=== PATIENT | male | born 1940 | race African-American/Black ===

== ENCOUNTER → 2016-12-06 | Outpatient (CLI) | payer MEDICARE, OTHER ==
--- NOTE | 2016-12-06 14:53 | RAD ---
DATE: 12/06/2016 EXAM: DIGITAL DIAGNOSTIC BILATERAL, BREAST RIGHT HISTORY: Right breast lump. History of finasteride use for 10 years. COMPARISON: None available. This study was interpreted with the benefit of Computerized Aided Detection (CAD). The breast parenchyma is primarily fatty replaced. Breast parenchyma level density A. FINDINGS: Bilateral CC and MLO views of the breasts were performed. Bilateral true lateral views were performed. Targeted ultrasound of the right breast was performed. Right breast: There is flame-shaped density in the retroareolar region in the region of palpable abnormality. 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 No suspicious medical calcifications or areas of architectural distortion. Targeted ultrasound of the right breast was performed which demonstrates a hypoechoic irregular mass. Given new and reported increase in size of this palpable abnormality, patient was provided the options of six-month follow-up versus ultrasound-guided breast biopsy. Patient decided to have ultrasound-guided core needle biopsy of the lesion after discussion of risks and benefits. Left breast: In the upper left breast along the posterior nipple line there are rounded calcifications which are linear on CC view with morphology of secretory calcifications. Findings are probably benign and a follow-up in 6 months is recommended. No suspicious mass or architectural distortion. IMPRESSION: 1. Right breast: Suspicious findings. Recommend ultrasound-guided core needle biopsy of retroareolar mass. 2. Left breast: Probably benign findings. Recommend six-month follow-up for calcifications. BI-RADS CATEGORY: 4 SUSPICIOUS ABNORMALITY- BIOPSY SHOULD BE CONSIDERED RECOMMENDED FOLLOW-UP: BIO BIOPSY RECOMMENDED PQRS compliance statement: Mammography is a sensitive method for finding small breast cancers, but it does not detect them all and is not a substitute for careful clinical examination. A negative mammogram does not negate a clinically suspicious finding and should not result in delay in biopsying a clinically suspicious abnormality. "Our facility is accredited by the [employer] Mammography [employer]."
== END | disposition home or self-care (01) ==
LOC: MAMMO 13:04
PROVIDERS: ATTEND Physician Assistant Medical
DX: N63 Unspecified lump in breast (principal)
CPT/HCPCS: 76641; G0204; 77066

== ENCOUNTER → 2016-12-16 | Outpatient (CLI) | payer OTHER ==
[~2016-12-16] VITALS: Ht 170.2 cm; Wt 59.9 kg
[~2016-12-16] MED LIST: CALC500T54 PO; CHOL10003 PO; FISH1CAP PO; MAGN400C PO; METF500T4 PO; MULT1TAB52 PO; VITA1CAP PO; ZINC50TA2 PO
--- NOTE | 2016-12-16 10:47 | RAD ---
Exam performed: Ultrasound-guided right breast biopsy. History: Palpable lump in the right breast, abnormality seen on ultrasound. Date of service: 12/16/16. Comparison made to a diagnostic right mammogram and ultrasound from 12/06/16. Discussion: Preliminary cavalry scout film demonstrates irregular hypoechoic superficial abnormality in the retroareolar right breast. The part was prepped and draped in the usual sterile fashion. 10 cc of 1% lidocaine was infiltrated into the skin and deep tissues. Thereafter a 14-gauge Bard biopsy needle was advanced from the premarked site using a 13-gauge introducer needle. 3 core specimens were taken. A biopsy clip was applied. Postprocedure scanning demonstrated no evidence of hematoma formation. The patient tolerated the procedure well and no immediate complications were encountered. Impression: 1. Technically successful ultrasound-guided right breast biopsy with placement of a biopsy clip. Pathology is pending End impression. Diagnostic right mammogram CC and MLO views of the right breast are obtained. The biopsy clip is in the near vicinity of the mammographic abnormality. Impression: 1. Biopsy clip is in near vicinity of the mammographic abnormality. BI-RADS Category 4: suspicious. Mammography is the most sensitive method for finding small breast cancers, but it does not detect them all and is not a substitute for careful clinical examination. A negative mammogram does not negate a clinically suspicious finding and should not result in delay in biopsying a clinically suspicious abnormality. "Our facility is accredited by the [employer] Mammography [employer]."
--- NOTE | 2016-12-17 15:05 | PATHOLOGY ---
PATHOLOGY REPORT * * * * * * * * FINAL DIAGNOSIS: Breast tissue, right retroareolar breast mass needle biopsies: - Gynecomastia. COMMENT: There is no evidence of malignancy. (JPM:mgr; 12/17/2016) REPORT ELECTRONICALLY SIGNED BY: Tang Gross M.D. DATE/TIME: 12/17/2016 15:04 * * * * * * * * GROSS PATHOLOGY: Received in formalin labeled "Rocco Andersen, right breast tissue retroareolar," are three needle cores of yellow-ying fibrofatty tissue measuring 0.7, 1.2 and 1.4 cm in length and 0.2 cm in diameter. The tissue is submitted in its entirety in cassette A1. The cold ischemic time is 5 minutes. The total formalin fixation time is 11 hours and 35 minutes. (JPM; 12/16/16) INITIAL CPT CODE(S): A; 89714 Professional services performed [place] [facility] [place] [address] Technical services performed by [facility] at [address] [place] [address]. SPECIMEN(S) RECEIVED: A.Right breast tissue retroareolar CLINICAL HISTORY: Right breast mass PATIENT: ROCCO ANDERSEN V /AGE: 105/19/1940 (Age: 76) PATIENT #: [id number] ALT CASE #: SPECIMEN COLLECTION DATE: 12/16/2016 SPECIMEN RECEIVED DATE: 12/16/2016 [facility] - [address] [place] [address] - PHONE: [phone] * * * END OF REPORT * * *
== END | disposition home or self-care (01) ==
LOC: US 09:08
PROVIDERS: ATTEND Physician Assistant Medical
DX: N63 Unspecified lump in breast (principal)
CPT/HCPCS: 19081; 76942; 88305; C1713; G0206; 77065

== ENCOUNTER → 2017-06-23 | Outpatient (CLI) | payer OTHER | END | disposition home or self-care (01) | LOC: MAMMO 09:33 | DX: R92.1 Mammographic calcification found on diagnostic imaging of breast (principal) | CPT/HCPCS: 77065 ==

== ENCOUNTER 2017-11-18 17:17 | Emergency (ER) | payer BC, OTHER ==
[2017-11-18] MEDS: ONDANSETRON PF 4 MG/2 ML VIAL. IV (18:10)
[2017-11-18] MEDS: MORPHINE SULFATE 4 MG/ML DISP.SYRIN. IV (18:12)
[2017-11-18] MEDS: DIPHTH,PERTUSS(ACELL),TET TOX 0.5 ML DISP.SYRIN. VAX IM (18:15)
[2017-11-18] MEDS ORDERED: ceFAZolin SODIUM 1 GM in IV DEXTROSE 5% 50 ML IV (18:17)
[2017-11-18] MEDS: LIDOCAINE 1% Multi-Dose 20 ML VIAL. INJ (18:36)
[2017-11-18] MEDS ORDERED: NEOMY/BACITR/POLYMYXIN OINT PACKET. TP (19:15)
[2017-11-18] MEDS: HYDROcodone/APAP 5/325MG 1 TAB TABLET PO (20:12)
== END 2017-11-18 20:13 | disposition home or self-care (01) ==
LOC: ER 17:17
DX: S91.341A Puncture wound with foreign body, right foot, initial encounter (principal); K21.9 Gastro-esophageal reflux disease without esophagitis; Z88.1 Allergy status to other antibiotic agents; Z88.6 Allergy status to analgesic agent; Z88.8 Allergy status to other drugs, medicaments and biological substances; W29.4XXA Contact with nail gun, initial encounter; Y93.89 Activity, other specified; Y99.8 Other external cause status; Y92.89 Other specified places as the place of occurrence of the external cause
CPT/HCPCS: 73630; 90471; 90715; 96365; 96372; 96375; 99284-25; J0690; J2270; J2405